=== PATIENT | female | born 1975 | race African-American/Black ===

== ENCOUNTER 2022-12-08 10:32 | Emergency (ER) | payer BC, MEDICAID ==
[~2022-12-08] VITALS: Ht 172.7 cm; Wt 82.0 kg
[2022-12-08 10:35] VITALS: O2SAT 98
[2022-12-08] MEDS ORDERED: ACETAMINOPHEN 325MG TABLET PO ONE (11:30)
[2022-12-08] MEDS ORDERED: DEXAMETHASONE 10 MG/ML VIAL IM ONE (11:30)
[2022-12-08] MEDS ORDERED: KETOROLAC 60MG/2ML VIAL IM ONE (11:30)
[2022-12-08] MEDS ORDERED: LIDOCAINE 5% PATCH TOP ONE (11:30)
[2022-12-08] MEDS ORDERED: ACET-2708 MT (11:50)
[2022-12-08] MEDS ORDERED: BACL-141 MT (11:50)
[2022-12-08] MEDS ORDERED: LIDO700A15 TP (11:50)
[2022-12-08 12:51] VITALS: BP 132/78; PULSE 78; RESP 16; TEMP 97.9
== END 2022-12-08 12:52 | disposition home or self-care (01) ==
LOC: ER 10:32
DX: M54.50 Low back pain, unspecified (principal); F17.200 Nicotine dependence, unspecified, uncomplicated; F12.10 Cannabis abuse, uncomplicated; Z00.00 Encounter for general adult medical examination without abnormal findings; V49.9XXA Car occupant (driver) (passenger) injured in unspecified traffic accident, initial encounter; Y93.89 Activity, other specified; Y92.89 Other specified places as the place of occurrence of the external cause; Y99.8 Other external cause status
CPT/HCPCS: 96372; 99284; J1100; J1885; Z7610 ×2